=== PATIENT | male | born 1940 | race Caucasian/White ===

== ENCOUNTER 2024-01-02 21:04 | Inpatient (IN) ==
[2024-01-02] MEDS: Pantoprazole 80 mg in NS BAG 80 MG/250 ML BAG IV ONE (21:50)
[2024-01-02 21:59] LABS: ABS Eosinophils 0.1 10^3/uL (0.0-0.5); ABS Lymphocytes 1.6 10^3/uL (1.0-4.8); ABS Monocytes 0.5 10^3/uL (0.0-1.1); ABS Neutrophils 4.4 10^3/uL (1.5-7.6); Eosinophil % 2.2 %; Hematocrit 24.5 % (38-53); Hemoglobin 8.4 g/dL (13.2-16.3); Lymphocyte % 23.7 %; Mean Corpuscular Hemoglobin 30.1 pg (27-33); Mean Corpuscular Hgb Conc 34.3 g/dL (31-36); Mean Corpuscular Volume 87.6 fL (80-97); Mean Platelet Volume 7.4 fL (7.5-11.2); Platelet Count 149 10^3/uL (150-450); Red Cell Distribution Width 14.5 % (12-17); White Blood Count 6.6 10^3/uL (3.6-10.2)
[2024-01-02 22:05] LABS: INR 0.95 (0.83-1.13)
[2024-01-02 23:16] LABS: Albumin 3.7 g/dL (3.2-5.2); Albumin/Globulin Ratio 2.1 (1-3); Calcium 8.7 mg/dL (8.6-10.3); Creatinine, Serum 2.43 mg/dL (0.67-1.17); Globulin 1.8 g/dL (2-4); Potassium 3.7 mmol/L (3.5-5.0); Total Bilirubin 0.5 mg/dL (0.2-1.0); Total Protein 5.5 g/dL (6.4-8.9); eGFR CKD-EPI 25.9 (>60)
[2024-01-03] MEDS: Glimepiride 4 mg TAB (NF) PO SCH (03:21)
[2024-01-03 05:59] LABS: ABS Eosinophils 0.1 10^3/uL (0.0-0.5); ABS Lymphocytes 1.2 10^3/uL (1.0-4.8); ABS Monocytes 0.4 10^3/uL (0.0-1.1); ABS Neutrophils 3.5 10^3/uL (1.5-7.6); ABS Nucleated RBC 0.01 10^3/ul; Eosinophil % 2.5 %; Hematocrit 21.6 % (38-53); Hemoglobin 7.3 g/dL (13.2-16.3); Lymphocyte % 22.5 %; Mean Corpuscular Hemoglobin 29.6 pg (27-33); Mean Corpuscular Volume 87.2 fL (80-97); Mean Platelet Volume 7.1 fL (7.5-11.2); Nucleated Red Blood Cells % 0.1 %/100WBC (0.0-0.8); Platelet Count 132 10^3/uL (150-450); Red Blood Count 2.47 10^6/uL (4.06-5.63); Red Cell Distribution Width 14.7 % (12-17); White Blood Count 5.2 10^3/uL (3.6-10.2)
[2024-01-03 06:46] LABS: Calcium 8.4 mg/dL (8.6-10.3); Creatinine, Serum 2.36 mg/dL (0.67-1.17); Magnesium 2.1 mg/dL (1.9-2.7); Phosphorus 3.8 mg/dL (2.5-5.0); Potassium 3.4 mmol/L (3.5-5.0); eGFR CKD-EPI 26.8 (>60)
[2024-01-03] MEDS: CMCS:Irbesartan 150 mg TAB (NF) PO SCH (08:18)
[2024-01-03] MEDS: Pantoprazole VIAL 40 MG VIAL IV SCH (08:19)
[2024-01-03] MEDS: Dextrose 50% Syringe 50 ml 25 GM/50 ML SYRINGE IV PUSH PRN (08:21)
[2024-01-03] MEDS ORDERED: LINAGLIPTIN 5 MG PO SCH (09:00)
[2024-01-03] MEDS: Potassium Chlor 20 meq TAB.ER PO ONE (10:17)
[2024-01-03 13:14] LABS: Hematocrit 26.6 % (38-53); Hemoglobin 9.2 g/dL (13.2-16.3)
[2024-01-03] MEDS ORDERED: fentaNYL 100 mcg/2 ml 50 MCG/ML VIAL ONE (16:57)
[2024-01-03] MEDS ORDERED: Midazolam 10 mg/10 ml VIAL 1 mg/ml 10 ml VIAL (10 mg) ONE (16:57)
[2024-01-03] MEDS: hydrALAZINE 20 mg/ml 1 ML Vial IV IV SLOW PU ONE (18:19)
[2024-01-04 06:32] LABS: Hematocrit 24.6 % (38-53); Hemoglobin 8.5 g/dL (13.2-16.3); Mean Corpuscular Hemoglobin 29.9 pg (27-33); Mean Corpuscular Hgb Conc 34.6 g/dL (31-36); Mean Corpuscular Volume 86.4 fL (80-97); Mean Platelet Volume 7.1 fL (7.5-11.2); Platelet Count 135 10^3/uL (150-450); Red Blood Count 2.84 10^6/uL (4.06-5.63); Red Cell Distribution Width 15.5 % (12-17); White Blood Count 4.7 10^3/uL (3.6-10.2)
[2024-01-04 08:07] LABS: Calcium 8.3 mg/dL (8.6-10.3); Creatinine, Serum 2.16 mg/dL (0.67-1.17); Magnesium 2.1 mg/dL (1.9-2.7); Potassium 3.8 mmol/L (3.5-5.0); eGFR CKD-EPI 29.8 (>60)
[2024-01-04] MEDS: CMCS: Irbesartan 150 mg TAB (NF) PO SCH (08:49)
[2024-01-04 18:08] LABS: Hematocrit 27.7 % (38-53); Hemoglobin 9.5 g/dL (13.2-16.3)
[2024-01-05 06:21] LABS: Hematocrit 25.4 % (38-53); Hemoglobin 8.6 g/dL (13.2-16.3); Mean Corpuscular Hemoglobin 29.5 pg (27-33); Mean Corpuscular Hgb Conc 33.9 g/dL (31-36); Mean Platelet Volume 7.1 fL (7.5-11.2); Platelet Count 142 10^3/uL (150-450); Red Blood Count 2.92 10^6/uL (4.06-5.63); Red Cell Distribution Width 15.3 % (12-17); White Blood Count 5.6 10^3/uL (3.6-10.2)
[2024-01-05 06:49] LABS: Calcium 8.2 mg/dL (8.6-10.3); Creatinine, Serum 2.41 mg/dL (0.67-1.17); Potassium 3.8 mmol/L (3.5-5.0); eGFR CKD-EPI 26.2 (>60)
[2024-01-05 14:28] VITALS: BP 148/62
== END 2024-01-05 16:15 | disposition home or self-care (01) | DRG 379 ==
LOC: EDHOLD 21:04 → ED 21:04 → SUATTDRO 22:26 → MED 01-03 07:59 → UNDODISIN 01-05 16:15
PROVIDERS: ADMIT Internal Medicine; ATTEND Internal Medicine